=== PATIENT | female | born 1955 | race Caucasian/White ===

== ENCOUNTER 2017-12-11 06:50 | Emergency (ER) | payer OTHER ==
[~2017-12-11] VITALS: Ht 162.6 cm; Wt 82.0 kg
[~2017-12-11 06:50] MED LIST: AMOXICILLIN500 MG PO; ASPIRIN ADULT L81 M2 PO; CIPROFLOXACN500 MG PO; LEXAPRO10 MG PO; LEXAPRO20 MG PO; LORTAB 5-325 MG1 TAB PO; SUDAFED 12HR120 MG PO; XANAX1 MG PO; ZITHROMAX250 MG PO
[2017-12-11] MEDS ORDERED: NAPROSYN500 MG PO (07:37)
[2017-12-11 07:49] VITALS: BP 118/81
== END 2017-12-11 07:53 | disposition home or self-care (01) | DRG 605 ==
LOC: ED 06:50
DX: S90.112A Contusion of left great toe without damage to nail, initial encounter (principal); F17.210 Nicotine dependence, cigarettes, uncomplicated; F32.9 Major depressive disorder, single episode, unspecified; F41.9 Anxiety disorder, unspecified; Z86.718 Personal history of other venous thrombosis and embolism; W22.09XA Striking against other stationary object, initial encounter; Y92.410 Unspecified street and highway as the place of occurrence of the external cause

== ENCOUNTER 2023-06-26 08:20 | Emergency (ER) | payer MEDICARE, OTHER ==
[~2023-06-26] VITALS: Ht 162.6 cm; Wt 69.0 kg
[~2023-06-26 08:20] MED LIST changes: +NAPROSYN500 MG PO
[2023-06-26 09:07] VITALS: BP 126/74
[2023-06-26 09:20] VITALS: BP 131/75
[2023-06-26 09:40] VITALS: BP 122/73
[2023-06-26 10:00] VITALS: BP 122/70
[2023-06-26] MEDS ORDERED: ERYTHROMYCIN O3.5 GM AD (10:11)
[2023-06-26 10:20] VITALS: BP 118/76
[2023-06-26 10:34] VITALS: BP 118/76
== END 2023-06-26 10:39 | disposition home or self-care (01) ==
LOC: ED 08:20
DX: S05.01XA Injury of conjunctiva and corneal abrasion without foreign body, right eye, initial encounter (principal); F32.A Depression, unspecified; F41.9 Anxiety disorder, unspecified; F17.200 Nicotine dependence, unspecified, uncomplicated; X58.XXXA Exposure to other specified factors, initial encounter; Z86.718 Personal history of other venous thrombosis and embolism